=== PATIENT | female | born 1940 | race African-American/Black ===

== ENCOUNTER 2019-06-12 12:08 | Emergency (ER) | payer SELFPAY ==
[~2019-06-12] VITALS: Ht 162.6 cm; Wt 73.0 kg
[2019-06-12 12:36] VITALS: BP 159/87
== END 2019-06-12 15:49 | disposition home or self-care (01) ==
LOC: ER 12:08
DX: S22.32XA Fracture of one rib, left side, initial encounter for closed fracture (principal); Z90.710 Acquired absence of both cervix and uterus; Z98.890 Other specified postprocedural states; W18.39XA Other fall on same level, initial encounter; Y93.89 Activity, other specified; Y92.89 Other specified places as the place of occurrence of the external cause; Y99.8 Other external cause status
CPT/HCPCS: 71101; 99283

== ENCOUNTER 2021-08-09 22:54 | Emergency (ER) | payer OTHER ==
[~2021-08-09] VITALS: Ht 162.6 cm; Wt 77.5 kg
[2021-08-10] MEDS ORDERED: KETOROLAC 15MG/ML VIAL IM ONE (01:00)
[2021-08-10] MEDS ORDERED: BACL-141 MT (03:25)
[2021-08-10] MEDS ORDERED: IBUP-2028 MT (03:25)
[2021-08-10 05:40] VITALS: BP 153/78
== END 2021-08-10 05:40 | disposition home or self-care (01) ==
LOC: ER 22:54
DX: M54.12 Radiculopathy, cervical region (principal); M25.532 Pain in left wrist; R07.89 Other chest pain; R03.0 Elevated blood-pressure reading, without diagnosis of hypertension
CPT/HCPCS: 71045; 72040; 73030; 93005; 96372; 99285; J1885

== ENCOUNTER 2022-12-27 10:35 | Emergency (ER) | payer OTHER ==
[~2022-12-27] VITALS: Ht 162.6 cm; Wt 72.6 kg
[~2022-12-27 10:35] MED LIST: BACL-141 MT; IBUP-2028 MT
[2022-12-27 10:42] VITALS: O2SAT 99
[2022-12-27 11:00] VITALS: TEMP 98.5
[2022-12-27] MEDS ORDERED: ACETAMINOPHEN 325MG TABLET PO ONE (11:00)
[2022-12-27] MEDS ORDERED: ACET-2708 MT (13:28)
[2022-12-27 13:59] VITALS: BP 130/80; PULSE 70; RESP 15
== END 2022-12-27 14:11 | disposition home or self-care (01) ==
LOC: ER 10:55
DX: M25.562 Pain in left knee (principal); M25.561 Pain in right knee; Z90.710 Acquired absence of both cervix and uterus; W18.39XA Other fall on same level, initial encounter; Y93.89 Activity, other specified; Y92.89 Other specified places as the place of occurrence of the external cause; Y99.8 Other external cause status
CPT/HCPCS: 73560; 99283